=== PATIENT | female | born 1935 | race African-American/Black ===

== ENCOUNTER 2017-08-01 00:54 | Inpatient (IN) | payer OTHER ==
[~2017-08-01] VITALS: Ht 172.7 cm; Wt 72.6 kg
[2017-08-01] MEDS ORDERED: NITROGLYCERIN OINT 1GM/INCH UDPKT TD STA (01:14)
[2017-08-01] MEDS ORDERED: FUROSEMIDE 40MG/4ML VIAL IV STA (01:14)
[2017-08-01 01:51] LABS: BASOPHILS % 0.4 % (0.0-2.0); EOSINOPHILS % 2.8 % (0.0-5.0); HEMATOCRIT. 45.1 % (36.0-48.0); HEMOGLOBIN. 15.3 g/dL (12.0-16.0); LYMPHOCYTES % 19.5 % (20.0-50.0); MEAN CORPUSCULAR HEMOGLOBIN 30.6 pg (28.0-32.0); MEAN CORPUSCULAR VOLUME 90.1 fL (81.0-99.0); MEAN PLATELET VOLUME 8.9 fl (7.4-10.4); NEUTROPHILS % 65.3 % (40.0-76.0); PLATELET 134 x1000/uL (130-400); RED BLOOD CELL COUNT 5.01 mill/uL (4.2-5.4); RED CELL DISTRIBUTION WIDTH 15.8 % (11.6-14.6)
[2017-08-01 01:56] LABS: CHLORIDE 107 mEq/L (98-107)
[2017-08-01 01:59] LABS: INR 1.3; PROTHROMBIN TIME 13.1 sec (9.4-11.6)
[2017-08-01] MEDS ORDERED: IPRATROPIUM/ALBUTEROL 0.5-3(2.5)MG/3ML NEB INH PRN (05:15)
[2017-08-01] MEDS ORDERED: ONDANSETRON HCL 4MG/2ML VIAL IV PRN (05:15)
[2017-08-01] MEDS ORDERED: ACETAMINOPHEN 325MG TABLET PO PRN (05:15)
[2017-08-01] MEDS ORDERED: GUAIFENESIN 200MG/10ML SUGAR FREE UDC PO PRN (05:15)
[2017-08-01] MEDS ORDERED: HYDROCODONE/ACETAMINOPHEN 5/325MG TABLET PO PRN (05:15)
[2017-08-01] MEDS ORDERED: DOCUSATE SODIUM 100MG CAPSULE PO PRN (05:15)
[2017-08-01] MEDS ORDERED: CLONIDINE 0.1MG TABLET PO PRN (05:15)
[2017-08-01 08:30] VITALS: BP 120/70
[2017-08-01] MEDS: AMLODIPINE 10MG TABLET PO SCH (09:00)
[2017-08-01 12:00] VITALS: BP 92/69
[2017-08-01] MEDS: ASPIRIN 81MG EC TABLET PO SCH (12:03)
[2017-08-01] MEDS: FUROSEMIDE 40MG/4ML VIAL IV SCH (12:04)
[2017-08-01] MEDS: ENOXAPARIN 40MG/0.4ML SYR SUBCUT SCH (12:04)
[2017-08-01 14:57] LABS: CREATINE KINASE 202 IU/L (26-192)
[2017-08-01] MEDS ORDERED: ISOS30TA6 PO (15:48)
[2017-08-01] MEDS ORDERED: FURO40TA5 PO (15:48)
[2017-08-01] MEDS ORDERED: LISI40TA4 PO (15:48)
[2017-08-01] MEDS ORDERED: METO-539 PO (15:48)
[2017-08-01 16:00] VITALS: BP 167/72
[2017-08-01 19:50] VITALS: BP 171/71
[2017-08-01] MEDS ORDERED: DEXTROSE 50% WATER 50ML SYRINGE IV PRN (21:30)
[2017-08-02] VITALS: BP 111/56
[2017-08-02 04:00] VITALS: BP 162/66
[2017-08-02] MEDS: BLOOD SUGAR DIAGNOSTIC STRIP TEST SCH ×4 (06:14→21:18)
[2017-08-02 07:06] LABS: BASOPHILS % 0.9 % (0.0-2.0); EOSINOPHILS % 3.5 % (0.0-5.0); HEMATOCRIT. 40.8 % (36.0-48.0); HEMOGLOBIN. 13.7 g/dL (12.0-16.0); LYMPHOCYTES % 25.4 % (20.0-50.0); MEAN CORPUSCULAR HEMOGLOBIN 29.8 pg (28.0-32.0); MEAN PLATELET VOLUME 9.1 fl (7.4-10.4); MONOCYTES % 13.6 % (2.0-8.0); NEUTROPHILS % 56.6 % (40.0-76.0); PLATELET 112 x1000/uL (130-400); RED BLOOD CELL COUNT 4.59 mill/uL (4.2-5.4); RED CELL DISTRIBUTION WIDTH 15.8 % (11.6-14.6)
[2017-08-02 07:28] LABS: CHLORIDE 109 mEq/L (98-107)
[2017-08-02 07:40] LABS: LDL CHOLESTEROL 66 mg/dL (5-100)
[2017-08-02 07:41] LABS: HDL CHOLESTEROL 49 mg/dL (40-59); T4 FREE 1.33 ng/dL (0.76-1.46)
[2017-08-02] MEDS: INSULIN LISPRO 100 UNITS/ML SUBCUT SCH ×4 (07:41→21:00)
[2017-08-02 08:00] VITALS: BP 84/56
[2017-08-02] MEDS: ENOXAPARIN 40MG/0.4ML SYR SUBCUT SCH (09:00)
[2017-08-02] MEDS: AMLODIPINE 10MG TABLET PO SCH (09:00)
[2017-08-02] MEDS: FUROSEMIDE 40MG/4ML VIAL IV SCH (09:35)
[2017-08-02] MEDS: ASPIRIN 81MG EC TABLET PO SCH (09:35)
[2017-08-02 12:00] VITALS: BP 98/58
[2017-08-02 16:00] VITALS: BP 170/65
[2017-08-02 17:06] LABS: HEPATITIS B SURFACE ANTIGEN NEGATIVE
[2017-08-02 17:27] LABS: CREATINE KINASE MB FRACTION 1.7 ng/mL (0.5-3.6)
[2017-08-02 17:31] LABS: CREATINE KINASE 163 IU/L (26-192)
[2017-08-02 17:34] LABS: HEPATITIS B CORE AB IGM NEGATIVE
[2017-08-02 17:35] LABS: HEPATITIS A AB IGM NEGATIVE (NEGATIVE)
[2017-08-02] MEDS ORDERED: IPRATROPIUM/ALBUTEROL 0.5-3(2.5)MG/3ML NEB HHN SCH (18:00)
[2017-08-02 19:48] VITALS: BP 140/64
[2017-08-02] MEDS ORDERED: CLONIDINE 0.1MG TABLET PO PRN (22:00)
== END 2017-08-02 22:44 | disposition short-term general hospital (02) | DRG 189 ==
LOC: ER 00:54 → EDBEDREQ 02:39 → EDBEDREQTM 02:39 → SUPCPDRO 05:08 → EDBEDREQ 06:38 → ENRESERV 07:05 → 6WST 08:23
PROVIDERS: ADMIT Hospitalist; ATTEND Hospitalist
DX: J96.00 Acute respiratory failure, unspecified whether with hypoxia or hypercapnia (principal); I11.0 Hypertensive heart disease with heart failure; I50.9 Heart failure, unspecified; I07.1 Rheumatic tricuspid insufficiency; I27.20 Pulmonary hypertension, unspecified; E11.9 Type 2 diabetes mellitus without complications; E78.00 Pure hypercholesterolemia, unspecified; E78.5 Hyperlipidemia, unspecified; I25.10 Atherosclerotic heart disease of native coronary artery without angina pectoris; G47.00 Insomnia, unspecified; I25.2 Old myocardial infarction; Z82.49 Family history of ischemic heart disease and other diseases of the circulatory system; Z83.3 Family history of diabetes mellitus; Z85.3 Personal history of malignant neoplasm of breast; Z86.73 Personal history of transient ischemic attack (TIA), and cerebral infarction without residual deficits; Z88.8 Allergy status to other drugs, medicaments and biological substances; Z79.899 Other long term (current) drug therapy
CPT/HCPCS: 36415; 70450; 71045; 71250; 80053; 80061; 82550; 82553; 82962; 83036; 83605; 83690; 83880; 84439; 84443; 84484; 85025; 85610; 86705; 86709; 86803; 87040; 87340; 93005; 93306; 93970; 96374; 99285; J1650; J1940; J7620